=== PATIENT | female | born 1945 | race Caucasian/White ===

== ENCOUNTER → 2016-09-19 | Outpatient (CLI) | payer MEDICARE, OTHER ==
--- NOTE | 2016-09-19 16:34 | WOMENS IMAGING REPORT ---
EXAM DESCRIPTION: BILAT SCREENING MAMMO W/CAD COMPLETED DATE/TIME: 09/19/2016 11:47 am REASON FOR STUDY: Z12.31, ROUTINE SCREENING MAMMO Z12.31 ENCNTR SCREEN MAMMOGRAM FOR MALIGNANT NEOP LASM OF KAREEM COMPARISON: 2010 to 2015 TECHNIQUE: Standard craniocaudal and mediolateral oblique views of each breast recorded using [employer] acquisition. LIMITATIONS: None. FINDINGS: No masses, calcifications or architectural distortion. No areas of suspicion. Read with the assistance of CAD. .[facility] - R2 Cenova Version 1.3 .[facility] - R2 Cenova Version 1.3 .[facility] - R2 Cenova Version 2.4 .[facility] - R2 Cenova Version 2.4 .[facility] - R2 Business [employer]ing Relationship Manager Version 9.2 IMPRESSION: NORMAL MAMMOGRAM. BIRADS 1. BREAST DENSITY: b. There are scattered areas of fibroglandular density. BIRAD: 1 NEGATIVE RECOMMENDATION: ROUTINE SCREENING COMMENT: The patient has been notified of the results by letter per SA requirements. Additional no tification policies are in place for contacting patient with suspicious or incomplete findings. Quality ID #[id number]: The [employer] recommends an annual screening mammogram for women aged 40 years or over. This facility utilizes a reminder system to ensure that all patients receive reminder letters, and/or direct phone calls for appointments. This includes reminders for routine scr eening mammograms, diagnostic mammograms, or other Breast Imaging Interventions when appropriate. Th is patient will be placed in the appropriate reminder system. The [employer] (ACR) has developed recommendations for screening MRI of the breast s in certain patient populations, to be used in conjunction with mammography. Breast MRI surveillanc e may be appropriate for women with more than 20% lifetime risk of developing breast cancer as deter mined by genetic testing, significant family history of the disease, or history of mantle radiation f or Hodgkins Disease. ACR Practice Guidelines 2008. TECHNICAL DOCUMENTATION: FINDING NUMBER: (1) ASSESSMENT: (1) JOB ID: [id number] [employer]- All Rights Reserved
== END ==
LOC: RAD 11:24
PROVIDERS: ATTEND Internal Medicine
DX: Z12.31 Encounter for screening mammogram for malignant neoplasm of breast (principal)
CPT/HCPCS: 77067; G0202

== ENCOUNTER 2016-10-24 13:45 | Inpatient (IN) | payer MEDICARE, OTHER ==
--- NOTE | 2016-10-24 13:51 | ER Document Report ---
ED Fall - General Stated Complaint: LEG INJURY Time Seen by Provider: 10/24/16 13:49 Mode of Arrival: Medic Information source: Patient TRAVEL OUTSIDE OF THE [place] IN LAST 30 DAYS: No - HPI Patient complains to provider of: Trip and fall Occurred: Just prior to arrival Where: Home, Outdoors Context: Tripped Associated symptoms: None Location of injury/pain: Upper extremity, Lower extremity Quality of pain: Achy Severity: Moderate Pain Level: 3 Notes: Patient is a 71-year-old female brought to the emergency room by EMS after trip and fall in her yard, she was unable to get up and is complaining of pain to the left knee, she also has wounds to her left forearm with a small piece of wood sticking out of 1 of the wounds, she denies a head injury or loss of consciousness, no numbness or tingling to her extremities - Related data Allergies/Adverse Reactions: No Known Drug Allergies Allergy (Verified 11/21/11 14:23) Past Medical History - General Information source: Patient - Social History Smoking Status: Never Smoker Family History: Reviewed & Not Pertinent - Past Medical History Cardiac Medical History: Reports: Hx Hypercholesterolemia - meds x 6 years, Hx Hypertension - meds x 6 years Denies: Hx Atrial Fibrillation, Hx Congestive Heart Failure, Hx Coronary Artery Disease, Hx Heart Attack, Hx Peripheral Vascular Disease, Hx Pulmonary Embolism, Hx Heart Murmur Pulmonary Medical History: Denies: Hx Asthma, Hx Bronchitis, Hx COPD, Hx Pneumonia, Hx Respiratory Failure, Hx Sleep Apnea, Hx Tuberculosis Neurological Medical History: Denies: Hx Cerebrovascular Accident, Hx Seizures Endocrine Medical History: Reports: Hx Hypothyroidism - meds x 8 years. Denies : Hx Hyperthyroidism Renal/ Medical History: Denies: Hx End Stage Renal Disease, Hx Kidney Stones, Hx Peritoneal Dialysis Malignancy Medical History: Denies: Hx Lung Cancer GI Medical History: Reports: Hx Gastroesophageal Reflux Disease - meds x 3 years. Denies: Hx Crohn's Disease, Hx Hepatitis, Hx Hiatal Hernia, Hx Irritable Bowel, Hx Liver Failure, Hx Ulcer Musculoskeltal Medical History: Reports Hx Arthritis, Denies Hx Fibromyalgia, Denies Hx Muscular Dystrophy Traumatic Medical History: Denies: Hx Fractures Infectious Medical History: Denies: Hx Hepatitis Past Surgical History: Reports: Hx Tonsillectomy. Denies: Hx Appendectomy, Hx Bowel Surgery, Hx Section, Hx Cholecystectomy, Hx Colostomy, Hx Coronary Artery Bypass Graft, Hx Gastric Bypass Surgery, Hx Herniorrhaphy, Hx Hysterectomy, Hx Mastectomy, Hx Open Heart Surgery, Hx Pacemaker, Hx Tubal Ligation - Immunizations Hx Diphtheria, Pertussis, Tetanus Vaccination: Yes Review of Systems - Review of Systems Constitutional: No symptoms reported EENT: No symptoms reported Cardiovascular: No symptoms reported Respiratory: No symptoms reported Gastrointestinal: No symptoms reported Genitourinary: No symptoms reported Female Genitourinary: No symptoms reported Musculoskeletal: See HPI Skin: See HPI Hematologic/Lymphatic: No symptoms reported Neurological/Psychological: No symptoms reported -: Yes All other systems reviewed and negative Physical Exam - Vital signs Vitals: Resp Pulse Ox 13 87 L 10/24/16 13:58 10/24/16 13:58 Interpretation: Normal - General General appearance: Appears well, Alert - HEENT Head: Normocephalic, Atraumatic Eyes: Normal Pupils: PERRL - Respiratory Respiratory status: No respiratory distress Chest status: Nontender Breath sounds: Normal Chest palpation: Normal - Cardiovascular Rhythm: Regular Heart sounds: Normal auscultation Murmur: No - Abdominal Inspection: Normal Distension: No distension Bowel sounds: Normal Tenderness: Nontender Organomegaly: No organomegaly - Back Back: Normal, Nontender - Extremities General upper extremity: Normal temperature General lower extremity: Normal temperature. No: Zachary's sign Forearm: Other - Small 2 mm puncture laceration to left lateral forearm with a small piece of foreign body consistent with wood chip protruding from wound, 2 cm irregular shaped laceration slightly more proximal with adipose tissue exposed, surrounding abrasions, 2+ radial pulses, distal sensation and motor is intact Knee: Deformity - Swelling with slight deformity to left proximal knee/distal femur, pain with range of motion testing, tender to palpate, distal sensation and motor is intact - Neurological Neuro grossly intact: Yes Cognition: Normal Orientation: AAOx4 Safia Coma Scale Eye Opening: Spontaneous [place] Coma Scale Verbal: Oriented Safia Coma Scale Motor: Obeys Commands [place] Coma Scale Total: 15 Speech: Normal Motor strength normal: LUE, RUE, LLE, RLE Sensory: Normal - Psychological Associated symptoms: Normal affect, Normal mood - Skin Skin Temperature: Warm Skin Moisture: Dry Skin Color: Normal Course - Re-evaluation Re-evalutation: 10/24/16 15:37 Patient was discussed with Dr. Solorzano, orthopedist international guest coordinator, who agrees to care for patient number fracture, however he request that the hospitalist service admit the patient as she is 71 with multiple medical comorbidities 10/24/16 16:39 Patient was discussed with Dr. Bedoya, who requested I call Dr. Salgado for patient admission, patient was discussed with Dr. Salgado, who agrees to admit the patient to the hospitalist service for further evaluation 10/24/16 16:48 - Vital Signs Vital signs: Temp Pulse Resp BP Pulse Ox 23 H 129/76 H 100 10/24/16 16:01 10/24/16 16:01 10/24/16 16:01 - Laboratory Result Diagrams: 10/24/16 15:00 10/24/16 15:15 Laboratory results interpreted by me: 10/24/16 10/24/16 15:00 15:15 WBC 11.5 H Absolute Neutrophils 8.3 H BUN 22 H Est GFR (Non-Af Amer) 51 L Glucose 138 H - Diagnostic Test Radiology reviewed: Image reviewed, Reports reviewed - EKG Interpretation by Me EKG shows normal: Sinus rhythm Rate: Normal Rhythm: NSR - Consults Dr Solorzano Time consulted: 15:37 Reason for consultation: 10/24/16 16:48 Distal femur fracture Consulted provider: will see as inpatient - Transfer of Care Care transferred to following provider: Dr Salgado Procedures - Laceration/Wound Repair Left Arm Time completed: 16:37 Wound length (cm): 2 Wound's Depth, Shape: Irregular Laceration pre-procedure: Sterile PPE donned, Sterile drapes applied, Shur- Clens applied Anesthetic type: 1% Lidocaine Volume Anesthetic (mLs): 5 Wound explored: Clean Irrigated w/ Saline (mLs): 300 Wound Debrided: Minimal Wound Repaired With: Sutures Suture Size/Type: 4:0, Nylon Number of Sutures: 3 Layer Closure?: No Post-procedure wound care: Sterile dressing applied Post-procedure NV exam normal: No Complications: No Adult Front & Back picture: 1 - 2 cm laceration Discharge - Discharge Clinical Impression: Femoral distal fracture Qualifiers: Encounter type: initial encounter Fracture type: closed Fracture morphology: other fracture Laterality: left Qualified Code(s): S72.492A - Other fracture of lower end of left femur, initial encounter for closed fracture Forearm laceration Qualifiers: Encounter type: initial encounter Laterality: left Qualified Code(s): S51.812A - Laceration without foreign body of left forearm, initial encounter Condition: Stable Disposition: ADMITTED INPATIENT Admitting Provider: Hospitalist Unit Admitted: Medical Floor
[2016-10-24] MEDS ORDERED: ONDANSETRON HCL INJ/PF 4 MG/2 ML SDV IV ONE (14:41)
[2016-10-24 15:28] LABS: ABSOLUTE BASOPHILS # (AUTO) 0.1 10^3/uL (0.0-0.2); ABSOLUTE EOSINOPHILS # (AUTO) 0.1 10^3/uL (0.0-0.6); ABSOLUTE LYMPHOCYTES (AUTO) 2.1 10^3/uL (0.5-4.7); ABSOLUTE MONOCYTES (AUTO) 0.9 10^3/uL (0.1-1.4); ABSOLUTE NEUT (AUTO) 8.3 10^3/uL (1.7-8.2); BASOPHILS % (AUTO) 0.5 % (0-2); EOSINOPHILS % (AUTO) 1.1 % (0-6); HEMATOCRIT 41.6 % (36.0-47.0); HEMOGLOBIN 13.8 g/dL (12.0-15.5); HGB HCT DIFFERENCE -0.2; LYMPHOCYTES % (AUTO) 18.2 % (13-45); MEAN CORPUSCULAR HEMOGLOBIN 32.4 pg (27.0-33.4); MEAN CORPUSCULAR HGB CONC 33.2 g/dL (32.0-36.0); MEAN CORPUSCULAR VOLUME 97 fl (80-97); MONOCYTES % (AUTO) 7.4 % (3-13); RED BLOOD COUNT 4.27 10^6/uL (3.72-5.28); RED CELL DISTRIBUTION WIDTH 13.4 % (11.5-14.0); SEGMENTED NEUTROPHILS % (AUTO) 72.8 % (42-78); WHITE BLOOD COUNT 11.5 10^3/uL (4.0-10.5)
[2016-10-24] MEDS ORDERED: METOCLOPRAMIDE HCL INJ/PF 10 MG/2 ML SDV IV ONE (15:37)
[2016-10-24] MEDS ORDERED: MORPHINE SULFATE 10 MG/ML INJ IV ONE (15:37)
[2016-10-24] MEDS ORDERED: NORMAL SALINE 1000 ML 1,000 ML IV PRN ×2 (15:37→16:24)
--- NOTE | 2016-10-24 15:37 | RADIOLOGY REPORT (SQ) ---
EXAM DESCRIPTION: CHEST SINGLE VIEW COMPLETED DATE/TIME: 10/24/2016 3:28 pm REASON FOR STUDY: fall COMPARISON: 12/08/2012 EXAM PARAMETERS: NUMBER OF VIEWS: One view. TECHNIQUE: Single frontal radiographic view of the chest acquired. RADIATION DOSE: NA LIMITATIONS: None. FINDINGS: LUNGS AND PLEURA: No opacities, masses or pneumothorax. No pleural effusion. MEDIASTINUM AND HILAR STRUCTURES: No masses. Contour normal. HEART AND VASCULAR STRUCTURES: Heart normal in size. Normal vasculature. BONES: No acute findings. HARDWARE: None in the chest. OTHER: No other significant finding. IMPRESSION: NO ACUTE RADIOGRAPHIC FINDING IN THE CHEST. TECHNICAL DOCUMENTATION: JOB ID: [id number]
--- NOTE | 2016-10-24 15:38 | RADIOLOGY REPORT (SQ) ---
EXAM DESCRIPTION: FOREARM LEFT COMPLETED DATE/TIME: 10/24/2016 3:28 pm REASON FOR STUDY: fall COMPARISON: None. NUMBER OF VIEWS: Two views. TECHNIQUE: Two radiographic images acquired of the left forearm, including elbow and wrist in at carlie st one projection. LIMITATIONS: None. FINDINGS: MINERALIZATION: Normal. BONES: No acute fracture. No worrisome bone lesions. SOFT TISSUES: No obvious swelling or foreign body. OTHER: No other significant finding. IMPRESSION: NEGATIVE STUDY OF THE LEFT FOREARM. NO RADIOGRAPHIC EVIDENCE OF ACUTE INJURY. TECHNICAL DOCUMENTATION: JOB ID: [id number] [employer]- All Rights Reserved
--- NOTE | 2016-10-24 15:38 | RADIOLOGY REPORT (SQ) ---
EXAM DESCRIPTION: FEMUR LEFT COMPLETED DATE/TIME: 10/24/2016 3:28 pm REASON FOR STUDY: fall COMPARISON: None. NUMBER OF VIEWS: Two views. TECHNIQUE: Two radiographic images acquired of the left femur to include hip and knee in at least on e projection. LIMITATIONS: None. FINDINGS: There is a comminuted fracture of the distal femoral shaft just superior to the femoral co mponent of the knee prosthesis. There is about 1 shaft width of posterior displacement. IMPRESSION: Fracture of the distal femur. TECHNICAL DOCUMENTATION: JOB ID: [id number] [employer]- All Rights Reserved
[2016-10-24] MEDS ORDERED: LIDOCAINE 1%/EPINEPHRINE INJ 20 ML VIAL INJ ONE (15:55)
[2016-10-24 16:20] LABS: ALANINE AMINOTRANSFERASE 27 U/L (9-52); ALBUMIN 3.9 g/dL (3.5-5.0); ALKALINE PHOSPHATASE 74 U/L (38-126); ANION GAP 8 (5-19); ASPARTATE AMINO TRANSFERASE 20 U/L (14-36); BILIRUBIN,DIRECT 0.3 mg/dL (0.0-0.4); BILIRUBIN,TOTAL 0.5 mg/dL (0.2-1.3); BLOOD UREA NITROGEN 22 mg/dL (7-20); CALCIUM 9.5 mg/dL (8.4-10.2); CARBON DIOXIDE 28 mmol/L (22-30); CHLORIDE 105 mmol/L (98-107); CREATININE RESULT 1.05 mg/dL (0.52-1.25); GLUCOSE 138 mg/dL (75-110); POTASSIUM 4.5 mmol/L (3.6-5.0); SODIUM 141.3 mmol/L (137-145); TOTAL PROTEIN 6.6 g/dL (6.3-8.2)
[2016-10-24] MEDS ORDERED: LIDOCAINE 1% INJ-PF (10 MG/ML) 30 ML SDV ONE (16:21)
[2016-10-24] MEDS ORDERED: ACETAMINOPHEN 325 MG TABLET PO PRN (16:24)
[2016-10-24] MEDS ORDERED: ALBUTEROL SULFATE 0.083% NEB 2.5 MG/3 ML AMPUL NEB PRN (16:24)
[2016-10-24] MEDS ORDERED: MAG HYDROX/AL HYDROX/SIMETH SUSP 30 ML UDCUP PO PRN (16:30)
[2016-10-24] MEDS ORDERED: ONDANSETRON HCL INJ/PF 4 MG/2 ML SDV IV PRN (16:30)
[2016-10-24] MEDS ORDERED: MAGNESIUM HYDROXIDE SUSP 30 ML UDCUP PO PRN (16:30)
--- NOTE | 2016-10-24 16:47 | PDOC H&P ---
History of Present Illness Admission Date/PCP: 10/24/16 16:02 SAGAR BRUNER MD Patient complains of: arm and leg pain History of Present Illness: MARIMAR ARNDT is a 71 year old female presents to the ED after mechanical ground level fall while walking in her yard, she thinks she just mis-stepped landing hard onto her left side in the bushes. she did not hear or feel a pop but did have intense, sharp, knife like pain in the knee preventing her from standing, constant and radiating into the hip, nothing alleviated until given pain meds in ED. She also has a part of her bushes impaled into her superficial soft tissue of her left ant forearm. her last tetanus was in the past 5 years. she was in her usual state of health prior to this. she denies LEÓN, dizziness, LOC, N/T, chest pain, palpitations, fevers/chills, cough with phlegm, melena, hematochezia. she is normally able to perform all ADLs, does her own cooking/cleaning, groceries and much of her own yard work. She's never had cardiac history beyond HTN and never had difficulty waking from anesthesia or adverse reaction to medicine other than postop nausea and emesis. eval in the ED shows distal left femur fracture just proximal to previous TKA hardware. we were asked to admit and consult ortho for repair. Past Medical History Cardiac Medical History: Reports: Hyperlipidema - meds x 6 years, Hypertension - meds x 6 years Denies: Atrial Fibrillation, Congestive Heart Failure, Coronary Artery Disease, Myocardial Infarction, Peripheral Vascular Disease, Pulmonary Embolism , Heart Murmur Pulmonary Medical History: Denies: Asthma, Bronchitis, Chronic Obstructive Pulmonary Disease (COPD), Pneumonia, Respiratory Failure, Sleep Apnea, Tuberculosis Neurological Medical History: Denies: Seizures Endocrine Medical History: Reports: Hypothyroidism - meds x 8 years Denies: Hyperthyroidism Renal/ Medical History: Denies: End Stage Renal Disease Malignancy Medical History: Denies: Lung Cancer GI Medical History: Reports: Gastroesophageal Reflux Disease - meds x 3 years Denies: Crohn's Disease, Hepatitis, Hiatal Hernia Musculoskeltal Medical History: Reports: Arthritis Denies: Fibromyalgia Hematology: Denies: Anemia, Sickle Cell Disease Past Surgical History Past Surgical History: Reports: Orthopedic Surgery - bilat TKA's, Tonsillectomy Denies: Amputation, Appendectomy, Section, Cholecystectomy, Colostomy, Coronary Artery Bypass Graft, Gastric Bypass Surgery, Herniorrhaphy, Hysterectomy, Mastectomy, Pacemaker, Tubal Ligation Social History Information Source: Patient Smoking Status: Never Smoker Frequency of Alcohol Use: None Hx Recreational Drug Use: No Hx Prescription Drug Abuse: No - Advance Directive Resuscitation Status: Full Code Family History Family History: Reviewed & Not Pertinent, DM Parental Family History Reviewed: Yes Children Family History Reviewed: Yes Sibling(s) Family History Reviewed.: Yes Medication/Allergy Home Medications: Aspirin [Aspirin 81 mg Chewable Tablet] 81 mg PO DAILY 11/21/11 Levothyroxine Sodium [Synthroid 112 Mcg Tablet] 112 mcg PO QAM 11/21/11 Omeprazole [Prilosec 20 mg Capsule] 20 mg PO QAM 11/21/11 Simvastatin [Zocor 40 mg Tablet] 60 mg PO QHS 11/21/11 Metoprolol Tartrate [Lopressor 50 mg Tablet] 50 mg PO BID 12/16/12 Telmisartan/Hydrochlorothiazid [Micardis HCT 80-25 mg Tablet] 1 each PO QAM Allergies/Adverse Reactions: No Known Drug Allergies Allergy (Verified 11/21/11 14:23) Review of Systems All systems: reviewed and no additional remarkable complaints except as stated - ROS: all systems reviewed, see above, remaining systems negative. Physical Exam Vital Signs: Temp Pulse Resp BP Pulse Ox 23 H 129/76 H 100 10/24/16 16:01 10/24/16 16:01 10/24/16 16:01 General appearance: PRESENT: mild distress, obese, well-developed, well- nourished Head exam: PRESENT: atraumatic, normocephalic Eye exam: PRESENT: EOMI, PERRLA. ABSENT: conjunctival injection, scleral icterus Mouth exam: PRESENT: moist, neck supple Neck exam: PRESENT: full ROM. ABSENT: lymphadenopathy, meningismus, tenderness Respiratory exam: PRESENT: clear to auscultation pranay. ABSENT: accessory muscle use Cardiovascular exam: PRESENT: RRR. ABSENT: systolic murmur Pulses: PRESENT: normal radial pulses, normal dorsalis pedis pul Vascular exam: PRESENT: normal capillary refill, other - superficial varicosities GI/Abdominal exam: PRESENT: normal bowel sounds, soft. ABSENT: tenderness Extremities exam: PRESENT: other - left anterior forearm has small wooden bit stuck into the skin and soft tissue with contusion and scrape that is oozing blood slowly; no erythema or heat or swelling. ABSENT: calf tenderness, pedal edema Musculoskeletal exam: PRESENT: tenderness - very tender above the left knee, no contusion or swelling or ecchymosis as yet. ABSENT: ambulatory, full ROM Neurological exam: PRESENT: alert, awake, oriented to person, oriented to place , oriented to time, oriented to situation Psychiatric exam: PRESENT: appropriate affect, normal mood Skin exam: PRESENT: dry, warm Results Impressions: Chest X-Ray 10/24/16 13:49 IMPRESSION: NO ACUTE RADIOGRAPHIC FINDING IN THE CHEST. Femur X-Ray 10/24/16 13:49 IMPRESSION: Fracture of the distal femur. Forearm X-Ray 10/24/16 13:49 IMPRESSION: NEGATIVE STUDY OF THE LEFT FOREARM. NO RADIOGRAPHIC EVIDENCE OF ACUTE INJURY. Assessment & Plan - Diagnosis (1) Femoral distal fracture Qualifiers: Encounter type: initial encounter Fracture type: closed Fracture morphology: other fracture Laterality: left Qualified Code(s): S72.492A - Other fracture of lower end of left femur, initial encounter for closed fracture Is this a current diagnosis for this admission?: YesPlan: consult ortho for surgical repair; traction and care per dr abrams; pain control (2) Forearm laceration Qualifiers: Encounter type: initial encounter Laterality: left Qualified Code(s ): S51.812A - Laceration without foreign body of left forearm, initial encounter Is this a current diagnosis for this admission?: YesPlan: ED MD is to clean and dress the wound; will start empiric ancef. she reports tetanus shot in last 5 yrs (3) HTN (hypertension) Qualifiers: Hypertension type: essential hypertension Qualified Code(s): I10 - Essential (primary) hypertension Is this a current diagnosis for this admission?: YesPlan: continue beta latisha but hold other meds and monitor her BPs carefully; will likely worsen with the pain (4) Hyperlipidemia Qualifiers: Hyperlipidemia type: unspecified Qualified Code(s): E78.5 - Hyperlipidemia, unspecified Is this a current diagnosis for this admission?: YesPlan: resume home regimen at discharge (5) Hypothyroid Qualifiers: Hypothyroidism type: unspecified Qualified Code(s): E03.9 - Hypothyroidism, unspecified Is this a current diagnosis for this admission?: YesPlan: resume synthroid (6) Osteoarthritis Qualifiers: Osteoarthritis location: unspecified site Osteoarthritis type: unspecified Qualified Code(s): M19.90 - Unspecified osteoarthritis, unspecified site Is this a current diagnosis for this admission?: Yes - Time Time Spent: 50 to 70 Minutes Medications reviewed and adjusted accordingly: Yes Anticipated discharge: Acute Rehab Within: within 72 hours - Inpatient Certification Based on my medical assessment, after consideration of the patient's comorbidities, presenting symptoms, or acuity I expect that the services needed warrant INPATIENT care.: Yes I certify that my determination is in accordance with my understanding of Medicare's requirements for reasonable and necessary INPATIENT services [42 CFR 412.3e].: Yes Medical Necessity: Significant Comorbidiites Make Outpatient Treatment Too Risky , Need for Surgery, Risk of Complication if Not Cared For in Hospital
[2016-10-24 17:12] LABS: PROTHROMBIN TIME 13.3 SEC (11.4-15.4)
[2016-10-24 17:13] LABS: PARTIAL THROMBOPLASTIN TIME 28.2 SEC (23.5-35.8)
--- NOTE | 2016-10-24 17:19 | EKG REPORT ---
SEVERITY:- NORMAL ECG - SINUS RHYTHM : Confirmed by: Yi Murcia MD 24-Oct-2016 17:17:33
[2016-10-24] MEDS ORDERED: MORPHINE SULFATE 10 MG/ML INJ IV PRN (17:39)
[2016-10-24] MEDS: DOCUSATE SODIUM 100 MG CAPSULE PO SCH (18:51)
[2016-10-24] MEDS: CEFAZOLIN 1 GM/D5W RTU 50 ML IV SCH ×2 (18:52→23:09)
[2016-10-24] MEDS: METOPROLOL TARTRATE 50 MG TABLET PO SCH (21:46)
[2016-10-24 22:47] LABS: PROTHROMBIN TIME 13.4 SEC (11.4-15.4)
[2016-10-24 22:55] LABS: ANION GAP 10 (5-19); BLOOD UREA NITROGEN 23 mg/dL (7-20); CALCIUM 9.1 mg/dL (8.4-10.2); CARBON DIOXIDE 28 mmol/L (22-30); CHLORIDE 102 mmol/L (98-107); CREATININE RESULT 0.92 mg/dL (0.52-1.25); GLUCOSE 161 mg/dL (75-110); POTASSIUM 4.6 mmol/L (3.6-5.0); SODIUM 140.4 mmol/L (137-145)
[2016-10-24 23:22] LABS: ABSOLUTE LYMPHOCYTES (AUTO) 1.3 10^3/uL (0.5-4.7); ABSOLUTE MONOCYTES (AUTO) 0.8 10^3/uL (0.1-1.4); ABSOLUTE NEUT (AUTO) 7.5 10^3/uL (1.7-8.2); BASOPHILS % (AUTO) 0.5 % (0-2); EOSINOPHILS % (AUTO) 0.1 % (0-6); HEMATOCRIT 37.2 % (36.0-47.0); HEMOGLOBIN 12.6 g/dL (12.0-15.5); HGB HCT DIFFERENCE 0.6; LYMPHOCYTES % (AUTO) 13.3 % (13-45); MEAN CORPUSCULAR HEMOGLOBIN 32.5 pg (27.0-33.4); MEAN CORPUSCULAR VOLUME 96 fl (80-97); MONOCYTES % (AUTO) 7.9 % (3-13); RED BLOOD COUNT 3.88 10^6/uL (3.72-5.28); RED CELL DISTRIBUTION WIDTH 13.3 % (11.5-14.0); SEGMENTED NEUTROPHILS % (AUTO) 78.2 % (42-78); WHITE BLOOD COUNT 9.6 10^3/uL (4.0-10.5)
[2016-10-25] MEDS: CEFAZOLIN 1 GM/D5W RTU 50 ML IV SCH (05:15)
[2016-10-25] MEDS: OXYCODONE-ACETAMINOPHEN 5-325 MG TABLET PO PRN ×2 (05:15→17:24)
[2016-10-25 05:21] LABS: ABSOLUTE BASOPHILS # (AUTO) 0.1 10^3/uL (0.0-0.2); ABSOLUTE MONOCYTES (AUTO) 0.9 10^3/uL (0.1-1.4); ABSOLUTE NEUT (AUTO) 4.9 10^3/uL (1.7-8.2); BASOPHILS % (AUTO) 0.6 % (0-2); EOSINOPHILS % (AUTO) 0.5 % (0-6); HEMATOCRIT 34.9 % (36.0-47.0); HEMOGLOBIN 11.8 g/dL (12.0-15.5); HGB HCT DIFFERENCE 0.5; LYMPHOCYTES % (AUTO) 25.5 % (13-45); MEAN CORPUSCULAR HEMOGLOBIN 32.3 pg (27.0-33.4); MEAN CORPUSCULAR HGB CONC 33.9 g/dL (32.0-36.0); MEAN CORPUSCULAR VOLUME 96 fl (80-97); MONOCYTES % (AUTO) 11.9 % (3-13); RED BLOOD COUNT 3.66 10^6/uL (3.72-5.28); RED CELL DISTRIBUTION WIDTH 13.5 % (11.5-14.0); SEGMENTED NEUTROPHILS % (AUTO) 61.5 % (42-78)
--- NOTE | 2016-10-25 07:12 | PDOC CONSULTATION ---
Consultation Consult Date: 10/25/16 Consult reason:: Left lower extremity fracture History of Present Illness Admission Date/PCP: 10/24/16 16:24 SAGAR BRUNER MD History of Present Illness: The patient is a 71-year-old white female known to me from a prior right knee arthroplasty 4-5 years ago who presents status post a fall in the yard with subsequent left lower extremity pain and inability to weight-bear. Medical history is notable for a left knee arthroplasty in the distant past. Past Medical History Cardiac Medical History: Reports: Hyperlipidema - meds x 6 years, Hypertension - meds x 6 years Denies: Atrial Fibrillation, Congestive Heart Failure, Coronary Artery Disease, Myocardial Infarction, Peripheral Vascular Disease, Pulmonary Embolism , Heart Murmur Pulmonary Medical History: Denies: Asthma, Bronchitis, Chronic Obstructive Pulmonary Disease (COPD), Pneumonia, Respiratory Failure, Sleep Apnea, Tuberculosis Neurological Medical History: Denies: Seizures Endocrine Medical History: Reports: Hypothyroidism - meds x 8 years Denies: Hyperthyroidism Renal/ Medical History: Denies: End Stage Renal Disease Malignancy Medical History: Denies: Lung Cancer GI Medical History: Reports: Gastroesophageal Reflux Disease - meds x 3 years Denies: Crohn's Disease, Hepatitis, Hiatal Hernia Musculoskeltal Medical History: Reports: Arthritis Denies: Fibromyalgia Hematology: Denies: Anemia, Sickle Cell Disease Past Surgical History Past Surgical History: Reports: Orthopedic Surgery - bilat TKA's, Tonsillectomy Denies: Amputation, Appendectomy, Section, Cholecystectomy, Colostomy, Coronary Artery Bypass Graft, Gastric Bypass Surgery, Herniorrhaphy, Hysterectomy, Mastectomy, Pacemaker, Tubal Ligation Social History Smoking Status: Never Smoker Cigarettes Packs Per Day: 0 Cigars Per Day: 0 Pipes Per Day: 0 Number of Years Smokin Last Time Smoked: 10/23/16 Frequency of Alcohol Use: Rare Hx Recreational Drug Use: No Hx Prescription Drug Abuse: No - Advance Directive Resuscitation Status: Full Code Family History Family History: Reviewed & Not Pertinent Parental Family History Reviewed: No Children Family History Reviewed: No Sibling(s) Family History Reviewed.: No Medication/Allergy Home Medications: Aspirin [Aspirin 81 mg Chewable Tablet] 81 mg PO DAILY 11/21/11 Levothyroxine Sodium [Synthroid 112 Mcg Tablet] 112 mcg PO QAM 11/21/11 Omeprazole [Prilosec 20 mg Capsule] 20 mg PO QAM 11/21/11 Simvastatin [Zocor 40 mg Tablet] 60 mg PO QHS 11/21/11 Metoprolol Tartrate [Lopressor 50 mg Tablet] 50 mg PO BID 12/16/12 Telmisartan/Hydrochlorothiazid [Micardis HCT 80-25 mg Tablet] 1 each PO QAM Allergies/Adverse Reactions: No Known Drug Allergies Allergy (Verified 11/21/11 14:23) Review of Systems All systems: as per H Physical Exam Vital Signs: Temp Pulse Resp BP Pulse Ox 36.8 C 65 16 100/55 L 95 10/25/16 03:25 10/25/16 03:25 10/25/16 03:25 10/25/16 03:25 10/25/16 03:25 Intake & Output 10/24/16 10/25/16 10/26/16 06:59 06:59 06:59 Intake Total 1307 Output Total 600 Balance 707 Weight 121 kg General appearance: PRESENT: mild distress, obese Head exam: PRESENT: normocephalic Eye exam: PRESENT: EOMI Respiratory exam: PRESENT: unlabored Cardiovascular exam: PRESENT: RRR Pulses: PRESENT: +1 pedal pulses bilateral Vascular exam: PRESENT: normal capillary refill GI/Abdominal exam: PRESENT: soft Rectal exam: PRESENT: deferred Extremities exam: PRESENT: other - Lower extremity is externally rotated. Tender to palpation. Passive range of motion is not assessed. Anterior skin incision from total knee arthroplasty is well healed. Distal neurovascular examination is intact. Neurological exam: PRESENT: alert, awake, oriented to person, oriented to place , oriented to time, oriented to situation. ABSENT: motor sensory deficit Psychiatric exam: PRESENT: appropriate affect, normal mood. ABSENT: homicidal ideation, suicidal ideation Skin exam: PRESENT: dry, intact, warm. ABSENT: cyanosis, rash Results Laboratory Results: 10/25/16 05:09 10/24/16 22:26 10/24/16 10/24/16 10/25/16 22:26 23:13 05:09 WBC 9.6 8.0 RBC 3.88 3.66 L Hgb 12.6 11.8 L Hct 37.2 34.9 L MCV 96 96 MCH 32.5 32.3 MCHC 34.0 33.9 RDW 13.3 13.5 Plt Count 161 141 L Seg Neutrophils % 78.2 H 61.5 Lymphocytes % 13.3 25.5 Monocytes % 7.9 11.9 Eosinophils % 0.1 0.5 Basophils % 0.5 0.6 Absolute Neutrophils 7.5 4.9 Absolute Lymphocytes 1.3 2.0 Absolute Monocytes 0.8 0.9 Absolute Eosinophils 0.0 0.0 Absolute Basophils 0.0 0.1 Sodium 140.4 Potassium 4.6 Chloride 102 Carbon Dioxide 28 Anion Gap 10 BUN 23 H Creatinine 0.92 Est GFR ( Amer) > 60 Est GFR (Non-Af Amer) > 60 Glucose 161 H Calcium 9.1 Impressions: Chest X-Ray 10/24/16 13:49 IMPRESSION: NO ACUTE RADIOGRAPHIC FINDING IN THE CHEST. Femur X-Ray 10/24/16 13:49 IMPRESSION: Fracture of the distal femur. Forearm X-Ray 10/24/16 13:49 IMPRESSION: NEGATIVE STUDY OF THE LEFT FOREARM. NO RADIOGRAPHIC EVIDENCE OF ACUTE INJURY. Status: Image reviewed by co - These demonstrate a distal femur fracture over a posterior stabilized Rush Sigma knee. Fracture is oblique and comminuted. Assessment & Plan - Diagnosis (1) Femoral distal fracture Qualifiers: Encounter type: initial encounter Fracture type: closed Fracture morphology: other fracture Laterality: left Qualified Code(s): S72.492A - Other fracture of lower end of left femur, initial encounter for closed fracture Is this a current diagnosis for this admission?: YesPlan: 71-year-old white female with a periprosthetic left distal femur fracture. Tender plan will be for surgical stabilization. First an attempted stabilization will be with a retrograde intramedullary nail. If this is unsuccessful backup plan would be for distal femoral resection and endoprosthetic reconstruction. - Time Time Spent: 50 to 70 Minutes Critical Time spent with patient: 15-24 minutes Anticipated discharge: SNF Within: Other - Plan Summary Plan Summary: Surgical intervention stabilization left lower extremity
[2016-10-25] MEDS: LANSOPRAZOLE 15 MG TAB.RAP.DR PO SCH (08:00)
[2016-10-25] MEDS: LEVOTHYROXINE SODIUM 0.112 MG TABLET PO SCH (08:00)
[2016-10-25] MEDS ORDERED: (PENDING PHARMACY ID) (Omeprazole [Prilosec 20 Mg Capsule] 20 MG) PO SCH (08:00)
[2016-10-25] MEDS ORDERED: TRANEXAMIC ACID INJ/PF 1,000 MG/10 ML SDV IV PRN (08:13)
[2016-10-25] MEDS ORDERED: CEFAZOLIN SODIUM 2 GM in DEXTROSE 5%-WATER 100 ML IV PRN (08:14)
[2016-10-25] MEDS: DOCUSATE SODIUM 100 MG CAPSULE PO SCH ×2 (09:16→17:24)
[2016-10-25] MEDS: ENOXAPARIN SODIUM INJ 40 MG/0.4 ML DISP.SYRIN SUBCUT SCH (09:16)
[2016-10-25] MEDS: METOPROLOL TARTRATE 50 MG TABLET PO SCH ×2 (09:16→21:10)
[2016-10-25] MEDS: RINGERS SOLUTION,LACTATED 1,000 ML IV PRN ×2 (10:07→18:44)
[2016-10-25] MEDS ORDERED: MIDAZOLAM 2 MG/2 ML INJ ONE (10:19)
[2016-10-25] MEDS ORDERED: FENTANYL CITRATE INJ/PF 100 MCG/2 ML AMPUL ONE (10:19)
[2016-10-25] MEDS ORDERED: PROPOFOL INJ 200 MG/20 ML VIAL IV ONE (10:19)
[2016-10-25] MEDS ORDERED: IBUPROFEN INJ 800 MG/8 ML VIAL IV ONE (10:20)
[2016-10-25] MEDS ORDERED: TRANEXAMIC ACID INJ/PF 1,000 MG/10 ML SDV IV ONE ×3 (10:20→14:00)
--- NOTE | 2016-10-25 10:54 | PDOC PROGRESS REPORT ---
Subjective Progress Note for:: 10/25/16 Subjective:: reason for visit: f/u femur fx, HTN, pain control hospital summary: MARIMAR ARNDT is a 71 year old female presents to the ED after mechanical ground level fall while walking in her yard, she thinks she just mis-stepped landing hard onto her left side in the bushes. she did not hear or feel a pop but did have intense, sharp, knife like pain in the knee preventing her from standing, constant and radiating into the hip, nothing alleviated until given pain meds in ED. She also has a part of her bushes impaled into her superficial soft tissue of her left ant forearm. her last tetanus was in the past 5 years. she was in her usual state of health prior to this. she denies LEÓN, dizziness, LOC, N/T, chest pain, palpitations, fevers/ chills, cough with phlegm, melena, hematochezia. she is normally able to perform all ADLs, does her own cooking/cleaning, groceries and much of her own yard work. She's never had cardiac history beyond HTN and never had difficulty waking from anesthesia or adverse reaction to medicine other than postop nausea and emesis. eval in the ED shows distal left femur fracture just proximal to previous TKA hardware. we were asked to admit and consult ortho for repair. dr abrams taking to OR 10/25 for attempt at medullary nailing in hopes of avoiding complete reconstruction with new, larger prosthesis. she states her pain remains intense but tolerable on current regimen. sharp, stabbing, throbbing, constant pain in the knee that radiates into the hip, worse with movement, better with narcotics, no asct'd symptoms of n/t. ROS: all systems reviewed, see above, remaining systems negative Physical Exam Vital Signs: Temp Pulse Resp BP Pulse Ox 98.3 F 64 16 112/47 L 95 10/25/16 09:00 10/25/16 09:00 10/25/16 09:00 10/25/16 09:00 10/25/16 09:00 Intake & Output 10/24/16 10/25/16 10/26/16 06:59 06:59 06:59 Intake Total 1307 168 Output Total 600 Balance 707 168 Weight 121 kg General appearance: PRESENT: mild distress, obese, well-developed, well- nourished Head exam: PRESENT: atraumatic, normocephalic Eye exam: PRESENT: EOMI, PERRLA. ABSENT: conjunctival injection, scleral icterus Mouth exam: PRESENT: moist, neck supple Neck exam: PRESENT: full ROM. ABSENT: lymphadenopathy, meningismus, tenderness Respiratory exam: PRESENT: clear to auscultation pranay. ABSENT: accessory muscle use Cardiovascular exam: PRESENT: RRR. ABSENT: systolic murmur Pulses: PRESENT: normal radial pulses, normal dorsalis pedis pul Vascular exam: PRESENT: normal capillary refill, other - superficial varicosities GI/Abdominal exam: PRESENT: normal bowel sounds, soft. ABSENT: tenderness Extremities exam: PRESENT: other - left anterior forearm bandaged ABSENT: calf tenderness, pedal edema Musculoskeletal exam: PRESENT: tenderness - very tender above the left knee with developing joint effusion; no contusion or ecchymosis as yet. ABSENT: ambulatory, full ROM Neurological exam: PRESENT: alert, awake, oriented to person, oriented to place , oriented to time, oriented to situation Psychiatric exam: PRESENT: appropriate affect, normal mood Skin exam: PRESENT: dry, warm Results Laboratory Results: 10/25/16 05:09 10/24/16 22:26 10/24/16 10/24/16 10/25/16 22:26 23:13 05:09 WBC 9.6 8.0 RBC 3.88 3.66 L Hgb 12.6 11.8 L Hct 37.2 34.9 L MCV 96 96 MCH 32.5 32.3 MCHC 34.0 33.9 RDW 13.3 13.5 Plt Count 161 141 L Seg Neutrophils % 78.2 H 61.5 Lymphocytes % 13.3 25.5 Monocytes % 7.9 11.9 Eosinophils % 0.1 0.5 Basophils % 0.5 0.6 Absolute Neutrophils 7.5 4.9 Absolute Lymphocytes 1.3 2.0 Absolute Monocytes 0.8 0.9 Absolute Eosinophils 0.0 0.0 Absolute Basophils 0.0 0.1 Sodium 140.4 Potassium 4.6 Chloride 102 Carbon Dioxide 28 Anion Gap 10 BUN 23 H Creatinine 0.92 Est GFR ( Amer) > 60 Est GFR (Non-Af Amer) > 60 Glucose 161 H Calcium 9.1 Impressions: Chest X-Ray 10/24/16 13:49 IMPRESSION: NO ACUTE RADIOGRAPHIC FINDING IN THE CHEST. Femur X-Ray 10/24/16 13:49 IMPRESSION: Fracture of the distal femur. Forearm X-Ray 10/24/16 13:49 IMPRESSION: NEGATIVE STUDY OF THE LEFT FOREARM. NO RADIOGRAPHIC EVIDENCE OF ACUTE INJURY. Status: Imported from PACS Assessment & Plan - Diagnosis (1) Femoral distal fracture Qualifiers: Encounter type: initial encounter Fracture type: closed Fracture morphology: other fracture Laterality: left Qualified Code(s): S72.492A - Other fracture of lower end of left femur, initial encounter for closed fracture Is this a current diagnosis for this admission?: Yes (2) Forearm laceration Qualifiers: Encounter type: initial encounter Laterality: left Qualified Code(s ): S51.812A - Laceration without foreign body of left forearm, initial encounter Is this a current diagnosis for this admission?: Yes (3) HTN (hypertension) Qualifiers: Hypertension type: essential hypertension Qualified Code(s): I10 - Essential (primary) hypertension Is this a current diagnosis for this admission?: Yes (4) Hyperlipidemia Qualifiers: Hyperlipidemia type: unspecified Qualified Code(s): E78.5 - Hyperlipidemia, unspecified Is this a current diagnosis for this admission?: Yes (5) Hypothyroid Qualifiers: Hypothyroidism type: unspecified Qualified Code(s): E03.9 - Hypothyroidism, unspecified Is this a current diagnosis for this admission?: Yes (6) Osteoarthritis Qualifiers: Osteoarthritis location: unspecified site Osteoarthritis type: unspecified Qualified Code(s): M19.90 - Unspecified osteoarthritis, unspecified site Is this a current diagnosis for this admission?: Yes - Time Time Spent with patient: 15-24 minutes Anticipated discharge: Acute Rehab
[2016-10-25] MEDS ORDERED: DIPHENHYDRAMINE HCL 50 MG/ML VIAL IV PRN (11:52)
[2016-10-25] MEDS ORDERED: MORPHINE SULFATE 10 MG/ML INJ IV PRN (11:52)
[2016-10-25] MEDS ORDERED: FENTANYL CITRATE INJ/PF 100 MCG/2 ML AMPUL IV PRN ×3 (11:52)
[2016-10-25] MEDS ORDERED: PROMETHAZINE HCL INJ 25 MG/1 ML VIAL IV PRN (11:52)
[2016-10-25] MEDS ORDERED: MEPERIDINE HCL/PF INJ 25 MG/1 ML DISP.SYRIN IV PRN (11:52)
--- NOTE | 2016-10-25 12:14 | EKG REPORT ---
SEVERITY:- BORDERLINE ECG - SINUS RHYTHM BORDERLINE T ABNORMALITIES, ANTERIOR LEADS : Confirmed by: Yi Murcia MD 25-Oct-2016 12:13:45
--- NOTE | 2016-10-25 12:56 | Operative Report ---
Operative Report DATE OF SURGERY: 10/25/16 PREOPERATIVE DIAGNOSIS: Left periprosthetic distal femur fracture OPERATION: Open reduction internal fixation left distal femur SURGEON: PILY MORAES ANESTHESIA: Spinal ESTIMATED BLOOD LOSS: 100 PROCEDURE: Patient supine on the operating table left lower extremities prepped and draped in a sterile fashion. A sterile tourniquet was utilized. The limb was elevated. Tourniquet inflated 280 torr. In line with the previous surgical approach for her total knee arthroplasty median parapatellar arthrotomy is performed. Upon entering the joint the distal femoral component is easily identified. The cement plug in the distal femur is removed with an osteotome. The ostium was also used to break up the underlying cement mantle. Subsequently the femur. Using a series of flexible reamers until 11 mm millimeters reamer is passed. Subsequently a Superfocus 320 x 11 mm retrograde nail is advanced over a guide sole across the fracture site. Attempt is made to reduce the extension deformity at the fracture site. Subsequently the distal aspect is secured with 2 oblique screws in the second and third location as well as a transverse both in the fourth location. Approximately secured with a single anterior posterior screw through the proximal femoral metadiaphysis. This point the tourniquet was deflated. With normal saline. Hemostasis obtained with electrocautery. The fracture site is then exposed from underneath and the defect in the metadiaphysis was packed with Vitoss bone graft substitute. The wound was then closed in layers interrupted Vicryl followed by jennifer. A sterile dressing was applied and the patient's return to the PACU in satisfactory condition.
--- NOTE | 2016-10-25 13:48 | RADIOLOGY REPORT (SQ) ---
EXAM DESCRIPTION: NO CHG FLUORO; FEMUR LEFT COMPLETED DATE/TIME: 10/25/2016 1:24 pm REASON FOR STUDY: RETROGRADE IM NAIL INSERTION COMPARISON: 10/24/2016. FLUOROSCOPY TIME: 1.0 minute. 4 images saved to PACS. TECHNIQUE: Intra-operative images acquired during surgical procedure to evaluate progress. NUMBER OF IMAGES: 4 images. LIMITATIONS: None. FINDINGS: Surgical fixation of the fracture of the femur with placement of hardware. IMPRESSION: IMAGE(S) OBTAINED DURING PROCEDURE. COMMENT: Quality ID 145: Final reports for procedures using fluoroscopy that document radiation exp osure indices, or exposure time and number of fluorographic images (if radiation exposure indices are not available) Please consult full operative report of the attending physician for description of the procedure. TECHNICAL DOCUMENTATION: JOB ID: [id number] [employer]- All Rights Reserved
--- NOTE | 2016-10-25 13:48 | RADIOLOGY REPORT (SQ) ---
EXAM DESCRIPTION: NO CHG FLUORO; FEMUR LEFT COMPLETED DATE/TIME: 10/25/2016 1:24 pm REASON FOR STUDY: RETROGRADE IM NAIL INSERTION COMPARISON: 10/24/2016. FLUOROSCOPY TIME: 1.0 minute. 4 images saved to PACS. TECHNIQUE: Intra-operative images acquired during surgical procedure to evaluate progress. NUMBER OF IMAGES: 4 images. LIMITATIONS: None. FINDINGS: Surgical fixation of the fracture of the femur with placement of hardware. IMPRESSION: IMAGE(S) OBTAINED DURING PROCEDURE. COMMENT: Quality ID 145: Final reports for procedures using fluoroscopy that document radiation exp osure indices, or exposure time and number of fluorographic images (if radiation exposure indices are not available) Please consult full operative report of the attending physician for description of the procedure. TECHNICAL DOCUMENTATION: JOB ID: [id number] [employer]- All Rights Reserved
[2016-10-25] MEDS: CEFAZOLIN 1 GM/D5W RTU 1 GM/50 ML RTUPB IV SCH (21:10)
[2016-10-26] MEDS: OXYCODONE-ACETAMINOPHEN 5-325 MG TABLET PO PRN ×3 (02:46→14:18)
[2016-10-26 05:16] LABS: ABSOLUTE EOSINOPHILS # (AUTO) 0.1 10^3/uL (0.0-0.6); ABSOLUTE LYMPHOCYTES (AUTO) 1.2 10^3/uL (0.5-4.7); ABSOLUTE NEUT (AUTO) 5.7 10^3/uL (1.7-8.2); BASOPHILS % (AUTO) 0.6 % (0-2); EOSINOPHILS % (AUTO) 1.8 % (0-6); HEMATOCRIT 31.5 % (36.0-47.0); HEMOGLOBIN 10.6 g/dL (12.0-15.5); HGB HCT DIFFERENCE 0.3; MEAN CORPUSCULAR HEMOGLOBIN 32.1 pg (27.0-33.4); MEAN CORPUSCULAR HGB CONC 33.6 g/dL (32.0-36.0); MEAN CORPUSCULAR VOLUME 96 fl (80-97); MONOCYTES % (AUTO) 12.6 % (3-13); RED CELL DISTRIBUTION WIDTH 13.5 % (11.5-14.0); WHITE BLOOD COUNT 8.1 10^3/uL (4.0-10.5)
[2016-10-26 05:32] LABS: ANION GAP 8 (5-19); BLOOD UREA NITROGEN 21 mg/dL (7-20); CALCIUM 8.4 mg/dL (8.4-10.2); CARBON DIOXIDE 27 mmol/L (22-30); CHLORIDE 103 mmol/L (98-107); CREATININE RESULT 0.94 mg/dL (0.52-1.25); GLUCOSE 124 mg/dL (75-110); POTASSIUM 4.4 mmol/L (3.6-5.0); SODIUM 137.5 mmol/L (137-145)
[2016-10-26] MEDS: CEFAZOLIN 1 GM/D5W RTU 1 GM/50 ML RTUPB IV SCH (05:48)
--- NOTE | 2016-10-26 06:54 | PDOC PROGRESS REPORT ---
Subjective Progress Note for:: 10/26/16 Subjective:: Complains of inability to move her leg Physical Exam Vital Signs: Temp Pulse Resp BP Pulse Ox 36.8 C 91 17 124/54 L 95 10/25/16 23:44 10/25/16 23:44 10/25/16 23:44 10/25/16 23:44 10/25/16 23:44 Intake & Output 10/24/16 10/25/16 10/26/16 06:59 06:59 06:59 Intake Total 1307 2823 Output Total 600 3125 Balance 707 -302 Weight 121 kg 121.2 kg General appearance: PRESENT: mild distress, obese Head exam: PRESENT: normocephalic Eye exam: PRESENT: EOMI Respiratory exam: PRESENT: unlabored Cardiovascular exam: PRESENT: RRR Pulses: PRESENT: +1 pedal pulses bilateral Vascular exam: PRESENT: normal capillary refill GI/Abdominal exam: PRESENT: soft Rectal exam: PRESENT: deferred Extremities exam: PRESENT: other - Left lower extremity dressing with some areas of drainage that have not completely saturated through. Distal neurovascular examination is intact. Neurological exam: PRESENT: alert, awake, oriented to person, oriented to place , oriented to time, oriented to situation. ABSENT: motor sensory deficit Psychiatric exam: PRESENT: appropriate affect, normal mood. ABSENT: homicidal ideation, suicidal ideation Skin exam: PRESENT: dry, intact, warm. ABSENT: cyanosis, rash Results Laboratory Results: 10/26/16 04:36 10/26/16 04:36 10/26/16 10/26/16 04:36 04:36 WBC 8.1 RBC 3.30 L Hgb 10.6 L Hct 31.5 L MCV 96 MCH 32.1 MCHC 33.6 RDW 13.5 Plt Count 119 L Seg Neutrophils % 70.0 Lymphocytes % 15.0 Monocytes % 12.6 Eosinophils % 1.8 Basophils % 0.6 Absolute Neutrophils 5.7 Absolute Lymphocytes 1.2 Absolute Monocytes 1.0 Absolute Eosinophils 0.1 Absolute Basophils 0.0 Sodium 137.5 Potassium 4.4 Chloride 103 Carbon Dioxide 27 Anion Gap 8 BUN 21 H Creatinine 0.94 Est GFR ( Amer) > 60 Est GFR (Non-Af Amer) 58 L Glucose 124 H Calcium 8.4 Impressions: Chest X-Ray 10/24/16 13:49 IMPRESSION: NO ACUTE RADIOGRAPHIC FINDING IN THE CHEST. Forearm X-Ray 10/24/16 13:49 IMPRESSION: NEGATIVE STUDY OF THE LEFT FOREARM. NO RADIOGRAPHIC EVIDENCE OF ACUTE INJURY. Femur X-Ray 10/25/16 00:00 IMPRESSION: IMAGE(S) OBTAINED DURING PROCEDURE. Fluoroscopy 10/25/16 00:00 IMPRESSION: IMAGE(S) OBTAINED DURING PROCEDURE. Status: Imported from PACS Assessment & Plan - Diagnosis (1) Femoral distal fracture Qualifiers: Encounter type: initial encounter Fracture type: closed Fracture morphology: other fracture Laterality: left Qualified Code(s): S72.492A - Other fracture of lower end of left femur, initial encounter for closed fracture Is this a current diagnosis for this admission?: YesPlan: 71-year-old white female status post open reduction internal fixation of the left distal femur fracture, postop day 1. Patient to be seen by physical therapy for touchdown weightbearing ambulation on the left lower extremity. Patient is to be seen by social work [facility] facility [facility] since she lives alone. - Time Time Spent with patient: 15-24 minutes Anticipated discharge: SNF Within: when bed available
[2016-10-26] MEDS: LEVOTHYROXINE SODIUM 0.112 MG TABLET PO SCH (07:53)
[2016-10-26] MEDS: LANSOPRAZOLE 15 MG TAB.RAP.DR PO SCH (07:53)
[2016-10-26] MEDS: METOPROLOL TARTRATE 50 MG TABLET PO SCH ×2 (10:00→21:23)
[2016-10-26] MEDS: ENOXAPARIN SODIUM INJ 40 MG/0.4 ML DISP.SYRIN SUBCUT SCH (10:00)
[2016-10-26] MEDS: DOCUSATE SODIUM 100 MG CAPSULE PO SCH ×2 (10:01→17:06)
--- NOTE | 2016-10-26 14:33 | PDOC PROGRESS REPORT ---
Subjective Progress Note for:: 10/26/16 Subjective:: reason for visit: f/u femur fx, HTN, pain control hospital summary: MARIMAR ARNDT is a 71 year old female presents to the ED after mechanical ground level fall while walking in her yard, she thinks she just mis-stepped landing hard onto her left side in the bushes. she did not hear or feel a pop but did have intense, sharp, knife like pain in the knee preventing her from standing, constant and radiating into the hip, nothing alleviated until given pain meds in ED. She also has a part of her bushes impaled into her superficial soft tissue of her left ant forearm. her last tetanus was in the past 5 years. she was in her usual state of health prior to this. she denies LEÓN, dizziness, LOC, N/T, chest pain, palpitations, fevers/ chills, cough with phlegm, melena, hematochezia. she is normally able to perform all ADLs, does her own cooking/cleaning, groceries and much of her own yard work. She's never had cardiac history beyond HTN and never had difficulty waking from anesthesia or adverse reaction to medicine other than postop nausea and emesis. eval in the ED shows distal left femur fracture just proximal to previous TKA hardware. we were asked to admit and consult ortho for repair. dr abrams taking to OR 10/25 for attempt at medullary nailing in hopes of avoiding complete reconstruction with new, larger prosthesis. she states her pain improved after surgery but tolerable on current regimen. sharp, stabbing, throbbing, constant pain in the knee that radiates into the hip , worse with movement, better with narcotics, no asct'd symptoms of n/t. ROS: all systems reviewed, see above, remaining systems negative Physical Exam Vital Signs: Temp Pulse Resp BP Pulse Ox 98.2 F 77 18 122/54 L 92 10/26/16 11:39 10/26/16 11:39 10/26/16 11:39 10/26/16 11:39 10/26/16 11:39 Intake & Output 10/25/16 10/26/16 10/27/16 06:59 06:59 06:59 Intake Total 1307 4023 220 Output Total 600 3125 Balance 707 408 220 Weight 121 kg 121.2 kg 121.2 kg General appearance: PRESENT: mild distress, obese, well-developed, well- nourished Head exam: PRESENT: atraumatic, normocephalic Eye exam: PRESENT: EOMI, PERRLA. ABSENT: conjunctival injection, scleral icterus Mouth exam: PRESENT: moist, neck supple Neck exam: PRESENT: full ROM. ABSENT: lymphadenopathy, meningismus, tenderness Respiratory exam: PRESENT: clear to auscultation pranay. ABSENT: accessory muscle use Cardiovascular exam: PRESENT: RRR. ABSENT: systolic murmur Pulses: PRESENT: normal radial pulses, normal dorsalis pedis pul Vascular exam: PRESENT: normal capillary refill, other - superficial varicosities GI/Abdominal exam: PRESENT: normal bowel sounds, soft. ABSENT: tenderness Extremities exam: PRESENT: other - left anterior forearm bandaged ABSENT: calf tenderness, pedal edema Musculoskeletal exam: PRESENT: tenderness - above the knee, heavily bandaged with some blood/serosanquinous fluid on the bandage ABSENT: ambulatory, full ROM Neurological exam: PRESENT: alert, awake, oriented to person, oriented to place , oriented to time, oriented to situation Psychiatric exam: PRESENT: appropriate affect, normal mood Skin exam: PRESENT: dry, warm Results Laboratory Results: 10/26/16 04:36 10/26/16 04:36 10/26/16 10/26/16 04:36 04:36 WBC 8.1 RBC 3.30 L Hgb 10.6 L Hct 31.5 L MCV 96 MCH 32.1 MCHC 33.6 RDW 13.5 Plt Count 119 L Seg Neutrophils % 70.0 Lymphocytes % 15.0 Monocytes % 12.6 Eosinophils % 1.8 Basophils % 0.6 Absolute Neutrophils 5.7 Absolute Lymphocytes 1.2 Absolute Monocytes 1.0 Absolute Eosinophils 0.1 Absolute Basophils 0.0 Sodium 137.5 Potassium 4.4 Chloride 103 Carbon Dioxide 27 Anion Gap 8 BUN 21 H Creatinine 0.94 Est GFR ( Amer) > 60 Est GFR (Non-Af Amer) 58 L Glucose 124 H Calcium 8.4 Impressions: Femur X-Ray 10/25/16 00:00 IMPRESSION: IMAGE(S) OBTAINED DURING PROCEDURE. Fluoroscopy 10/25/16 00:00 IMPRESSION: IMAGE(S) OBTAINED DURING PROCEDURE. Assessment & Plan - Diagnosis (1) Femoral distal fracture Qualifiers: Encounter type: initial encounter Fracture type: closed Fracture morphology: other fracture Laterality: left Qualified Code(s): S72.492A - Other fracture of lower end of left femur, initial encounter for closed fracture Is this a current diagnosis for this admission?: Yes (2) Forearm laceration Qualifiers: Encounter type: initial encounter Laterality: left Qualified Code(s ): S51.812A - Laceration without foreign body of left forearm, initial encounter Is this a current diagnosis for this admission?: Yes (3) HTN (hypertension) Qualifiers: Hypertension type: essential hypertension Qualified Code(s): I10 - Essential (primary) hypertension Is this a current diagnosis for this admission?: Yes (4) Hyperlipidemia Qualifiers: Hyperlipidemia type: unspecified Qualified Code(s): E78.5 - Hyperlipidemia, unspecified Is this a current diagnosis for this admission?: Yes (5) Hypothyroid Qualifiers: Hypothyroidism type: unspecified Qualified Code(s): E03.9 - Hypothyroidism, unspecified Is this a current diagnosis for this admission?: Yes (6) Osteoarthritis Qualifiers: Osteoarthritis location: unspecified site Osteoarthritis type: unspecified Qualified Code(s): M19.90 - Unspecified osteoarthritis, unspecified site Is this a current diagnosis for this admission?: Yes - Time Time Spent with patient: 25-34 minutes Anticipated discharge: Acute Rehab Within: within 48 hours
[2016-10-27] MEDS: OXYCODONE-ACETAMINOPHEN 5-325 MG TABLET PO PRN ×2 (08:30→21:30)
[2016-10-27] MEDS: LANSOPRAZOLE 15 MG TAB.RAP.DR PO SCH (08:31)
[2016-10-27] MEDS: LEVOTHYROXINE SODIUM 0.112 MG TABLET PO SCH (08:31)
[2016-10-27] MEDS ORDERED: BISACODYL 5 MG TABEC PO ONE (09:00)
[2016-10-27] MEDS: METOPROLOL TARTRATE 50 MG TABLET PO SCH ×2 (09:15→21:30)
[2016-10-27] MEDS: SENNOSIDES/DOCUSATE 8.6-50 MG 1 EACH TABLET PO SCH ×2 (09:15→17:38)
[2016-10-27] MEDS: ENOXAPARIN SODIUM INJ 40 MG/0.4 ML DISP.SYRIN SUBCUT SCH (09:16)
--- NOTE | 2016-10-27 11:48 | PDOC PROGRESS REPORT ---
Subjective Progress Note for:: 10/27/16 Subjective:: reason for visit: f/u femur fx, HTN, pain control hospital summary: MARIMAR ARNDT is a 71 year old female presents to the ED after mechanical ground level fall while walking in her yard, she thinks she just mis-stepped landing hard onto her left side in the bushes. she did not hear or feel a pop but did have intense, sharp, knife like pain in the knee preventing her from standing, constant and radiating into the hip, nothing alleviated until given pain meds in ED. She also has a part of her bushes impaled into her superficial soft tissue of her left ant forearm. her last tetanus was in the past 5 years. she was in her usual state of health prior to this. she denies LEÓN, dizziness, LOC, N/T, chest pain, palpitations, fevers/ chills, cough with phlegm, melena, hematochezia. she is normally able to perform all ADLs, does her own cooking/cleaning, groceries and much of her own yard work. She's never had cardiac history beyond HTN and never had difficulty waking from anesthesia or adverse reaction to medicine other than postop nausea and emesis. eval in the ED shows distal left femur fracture just proximal to previous TKA hardware. we were asked to admit and consult ortho for repair. dr abrams to OR 10/25 for attempt at medullary nailing in hopes of avoiding complete reconstruction with new, larger prosthesis. she states her pain improved after surgery but tolerable on current regimen. sharp, stabbing, throbbing, constant pain in the knee that radiates into the hip, worse with movement, better with narcotics, no asct'd symptoms of n/t. ROS: all systems reviewed, see above, remaining systems negative Physical Exam Vital Signs: Temp Pulse Resp BP Pulse Ox 98.6 F 86 20 142/53 H 94 10/27/16 07:36 10/27/16 07:36 10/27/16 07:36 10/27/16 07:36 10/27/16 07:36 Intake & Output 10/26/16 10/27/16 10/28/16 06:59 06:59 06:59 Intake Total 4022 1810 Output Total 5884 1725 Balance 898 85 Weight 121.2 kg 123.7 kg General appearance: PRESENT: mild distress, obese, well-developed, well- nourished Head exam: PRESENT: atraumatic, normocephalic Eye exam: PRESENT: EOMI, PERRLA. ABSENT: conjunctival injection, scleral icterus Mouth exam: PRESENT: moist, neck supple Neck exam: PRESENT: full ROM. ABSENT: lymphadenopathy, meningismus, tenderness Respiratory exam: PRESENT: clear to auscultation pranay. ABSENT: accessory muscle use Cardiovascular exam: PRESENT: RRR. ABSENT: systolic murmur Pulses: PRESENT: normal radial pulses, normal dorsalis pedis pul Vascular exam: PRESENT: normal capillary refill, other - superficial varicosities GI/Abdominal exam: PRESENT: normal bowel sounds, soft. ABSENT: tenderness Extremities exam: PRESENT: other - left anterior forearm bandaged ABSENT: calf tenderness, pedal edema Musculoskeletal exam: PRESENT: tenderness - above the knee, heavily bandaged with some blood/serosanquinous fluid on the bandage ABSENT: ambulatory, full ROM Neurological exam: PRESENT: alert, awake, oriented to person, oriented to place , oriented to time, oriented to situation Psychiatric exam: PRESENT: appropriate affect, normal mood Skin exam: PRESENT: dry, warm Results Laboratory Results: 10/26/16 04:36 10/26/16 04:36 Assessment & Plan - Diagnosis (1) Femoral distal fracture Qualifiers: Encounter type: initial encounter Fracture type: closed Fracture morphology: other fracture Laterality: left Qualified Code(s): S72.492A - Other fracture of lower end of left femur, initial encounter for closed fracture Is this a current diagnosis for this admission?: Yes (2) Forearm laceration Qualifiers: Encounter type: initial encounter Laterality: left Qualified Code(s ): S51.812A - Laceration without foreign body of left forearm, initial encounter Is this a current diagnosis for this admission?: Yes (3) HTN (hypertension) Qualifiers: Hypertension type: essential hypertension Qualified Code(s): I10 - Essential (primary) hypertension Is this a current diagnosis for this admission?: Yes (4) Hyperlipidemia Qualifiers: Hyperlipidemia type: unspecified Qualified Code(s): E78.5 - Hyperlipidemia, unspecified Is this a current diagnosis for this admission?: Yes (5) Hypothyroid Qualifiers: Hypothyroidism type: unspecified Qualified Code(s): E03.9 - Hypothyroidism, unspecified Is this a current diagnosis for this admission?: Yes (6) Osteoarthritis Qualifiers: Osteoarthritis location: unspecified site Osteoarthritis type: unspecified Qualified Code(s): M19.90 - Unspecified osteoarthritis, unspecified site Is this a current diagnosis for this admission?: Yes - Time Time Spent with patient: 15-24 minutes Anticipated discharge: Acute Rehab Within: within 24 hours
[2016-10-28] MEDS: OXYCODONE-ACETAMINOPHEN 5-325 MG TABLET PO PRN (03:39)
--- NOTE | 2016-10-28 06:26 | PDOC TRANSFER SUMMARY ---
General - Admit/Disc Date/PCP Admission Date/Primary Care Provider: 10/24/16 16:24 SAGAR BRUNER MD Discharge Date: 10/28/16 - Discharge Diagnosis (1) Femoral distal fracture Is this a current diagnosis for this admission?: Yes - Additional Information Resuscitation Status: Full Code Discharge Diet: As Tolerated, Regular Discharge Activity: Balance Activity w/Rest, Other - touch down weightbearing left lower extremity Home Medications: Aspirin [Aspirin 81 mg Chewable Tablet] 81 mg PO DAILY 11/21/11 Levothyroxine Sodium [Synthroid 0.112 mg Tablet] 112 mcg PO QAM 11/21/11 Omeprazole [Prilosec 20 mg Capsule] 20 mg PO QAM 11/21/11 Simvastatin [Zocor 40 mg Tablet] 60 mg PO QHS 11/21/11 Metoprolol Tartrate [Lopressor 50 mg Tablet] 50 mg PO BID 12/16/12 Telmisartan/Hydrochlorothiazid [Micardis HCT 80-25 mg Tablet] 1 each PO QAM History of Present Illness Admission Date/PCP: 10/24/16 16:24 SAGAR BRUNER MD History of Present Illness: Patient is a 71-year-old white female status post bilateral knee arthroplasty in the past now with a fall and inability to bear weight on the left side. Evaluation in the emergency room revealed a left periprosthetic femur fracture. The patient was admitted to the hospitalist and orthopedics consulted for fracture management. Hospital Course Hospital Course: Admitted through the emergency room and subsequently taken to the operating room for an open reduction internal fixation of the left distal femur fracture. She tolerates the procedure and postoperative rehabilitation without complication. Ability to ambulate has been limited by her weightbearing restriction which touchdown weightbearing on the left lower extremity. Dressing is changed on postop day 3. The wound is clean dry and intact. There is minimal pedal edema. Physical Exam Vital Signs: Temp Pulse Resp BP Pulse Ox 37.1 C 78 16 123/48 L 94 10/28/16 04:00 10/28/16 04:00 10/28/16 04:00 10/28/16 04:00 10/28/16 04:00 Intake & Output 10/26/16 10/27/16 10/28/16 06:59 06:59 06:59 Intake Total 4023 1810 440 Output Total 3125 1725 750 Balance 898 85 -310 Weight 121.2 kg 123.7 kg 123.4 kg General appearance: PRESENT: no acute distress, obese Head exam: PRESENT: normocephalic Eye exam: PRESENT: EOMI Respiratory exam: PRESENT: unlabored Cardiovascular exam: PRESENT: RRR Pulses: PRESENT: +1 pedal pulses bilateral Vascular exam: PRESENT: normal capillary refill GI/Abdominal exam: PRESENT: soft Rectal exam: PRESENT: deferred Musculoskeletal exam: PRESENT: other - Wound is clean dry and intact on postop day 3 without erythema drainage induration or tenderness. Neurological exam: PRESENT: alert, awake, oriented to person, oriented to place , oriented to time, oriented to situation. ABSENT: motor sensory deficit Psychiatric exam: PRESENT: appropriate affect, normal mood. ABSENT: homicidal ideation, suicidal ideation Skin exam: PRESENT: dry, intact, warm. ABSENT: cyanosis, rash Results Laboratory Results: 10/26/16 04:36 10/26/16 04:36 Impressions: Chest X-Ray 10/24/16 13:49 IMPRESSION: NO ACUTE RADIOGRAPHIC FINDING IN THE CHEST. Forearm X-Ray 10/24/16 13:49 IMPRESSION: NEGATIVE STUDY OF THE LEFT FOREARM. NO RADIOGRAPHIC EVIDENCE OF ACUTE INJURY. Femur X-Ray 10/25/16 00:00 IMPRESSION: IMAGE(S) OBTAINED DURING PROCEDURE. Fluoroscopy 10/25/16 00:00 IMPRESSION: IMAGE(S) OBTAINED DURING PROCEDURE. Status: Imported from PACS Transfer Plan - Disposition Transfer Plan: To be transferred to a group home facility with a left lower extremity touchdown weightbearing restriction for 6 weeks Plan Discharge Plan: Follow-up with Dr. Solorzano in the [facility] for surgery in 2 weeks for staple removal
[2016-10-28] MEDS: LEVOTHYROXINE SODIUM 0.112 MG TABLET PO SCH (10:58)
[2016-10-28] MEDS: METOPROLOL TARTRATE 50 MG TABLET PO SCH (10:59)
[2016-10-28] MEDS: LANSOPRAZOLE 15 MG TAB.RAP.DR PO SCH (10:59)
[2016-10-28] MEDS: SENNOSIDES/DOCUSATE 8.6-50 MG 1 EACH TABLET PO SCH (11:00)
[2016-10-28 11:16] VITALS: BP 126/48
--- NOTE | 2016-10-28 13:10 | PDOC DISCHARGE SUMMARY ---
General - Admit/Disc Date/PCP Admission Date/Primary Care Provider: 10/24/16 16:24 SAGAR BRUNER MD Discharge Date: 10/28/16 - Discharge Diagnosis (1) Femoral distal fracture Is this a current diagnosis for this admission?: YesSummary: s/p intramedullary nailing, per dr abrams; weight bearing and wound care per dr abrams. arrangements made for rehab placement and she is stable for transfer at this time. Rxs on chart for controlled substances (2) Forearm laceration Is this a current diagnosis for this admission?: YesSummary: continue topical wound care and dressing changes with dry dressing until healed. (3) HTN (hypertension) Is this a current diagnosis for this admission?: YesSummary: better controlled once her pain relieved. continue current regimen (4) Hyperlipidemia Is this a current diagnosis for this admission?: Yes (5) Hypothyroid Is this a current diagnosis for this admission?: Yes (6) Osteoarthritis Is this a current diagnosis for this admission?: Yes - Additional Information Resuscitation Status: Full Code Discharge Diet: As Tolerated, Regular Discharge Activity: Balance Activity w/Rest, Other - touch down weightbearing left lower extremity Home Medications: Aspirin [Aspirin 81 mg Chewable Tablet] 81 mg PO DAILY 11/21/11 Levothyroxine Sodium [Synthroid 0.112 mg Tablet] 112 mcg PO QAM 11/21/11 Omeprazole [Prilosec 20 mg Capsule] 20 mg PO QAM 11/21/11 Simvastatin [Zocor 40 mg Tablet] 60 mg PO QHS 11/21/11 Metoprolol Tartrate [Lopressor 50 mg Tablet] 50 mg PO BID 12/16/12 Telmisartan/Hydrochlorothiazid [Micardis HCT 80-25 mg Tablet] 1 each PO QAM Oxycodone HCl 5 mg PO Q6HP PRN #60 capsule 10/28/16 Rivaroxaban [Xarelto 10 mg Tablet] 10 mg PO DAILY #12 tablet 10/28/16 History of Present Illness Patient complains of: leg pain History of Present Illness: MARIMAR ARNDT is a 71 year old female presents to the ED after mechanical ground level fall while walking in her yard, she thinks she just mis-stepped landing hard onto her left side in the bushes. Hospital Course Hospital Course: she did not hear or feel a pop but did have intense, sharp, knife like pain in the knee preventing her from standing, constant and radiating into the hip, nothing alleviated until given pain meds in ED. She also has a part of her bushes impaled into her superficial soft tissue of her left ant forearm. her last tetanus was in the past 5 years. she was in her usual state of health prior to this. she denies LEÓN, dizziness, LOC, N/T, chest pain, palpitations, fevers/chills, cough with phlegm, melena, hematochezia. she is normally able to perform all ADLs, does her own cooking/cleaning, groceries and much of her own yard work. She's never had cardiac history beyond HTN and never had difficulty waking from anesthesia or adverse reaction to medicine other than postop nausea and emesis. eval in the ED shows distal left femur fracture just proximal to previous TKA hardware. we were asked to admit and consult ortho for repair. dr abrams to OR 10/25 for attempt at medullary nailing in hopes of avoiding complete reconstruction with new, larger prosthesis. she states her pain improved after surgery but tolerable on current regimen. sharp, stabbing, throbbing, constant pain in the knee that radiates into the hip, worse with movement, better with narcotics, no asct'd symptoms of n/t. orthopedic surgery consulted and taken to OR by aliza with successful repair, tolerating the procedure without complication. she is up working with PT but needs rehab placement until such time as she can return to independent living. arrangements made for transfer to [facility] for ongoing rehab and she is stable for d/c at this time. wound care and weight bearing instructions per dr abrams , see his notes for details. Physical Exam Vital Signs: Temp Pulse Resp BP Pulse Ox 98.9 F 81 19 126/48 H 93 10/28/16 08:03 10/28/16 08:03 10/28/16 08:03 10/28/16 08:03 10/28/16 08:03 Intake & Output 10/27/16 10/28/16 10/29/16 06:59 06:59 06:59 Intake Total 1810 440 Output Total 1725 750 Balance 85 -310 Weight 123.7 kg 123.4 kg General appearance: PRESENT: no acute distress, well-developed, well-nourished Eye exam: PRESENT: EOMI Mouth exam: PRESENT: moist Neck exam: PRESENT: full ROM Respiratory exam: PRESENT: clear to auscultation pranay. ABSENT: accessory muscle use Pulses: PRESENT: normal radial pulses, normal dorsalis pedis pul Neurological exam: PRESENT: alert, awake, oriented to person, oriented to place , oriented to time, oriented to situation Skin exam: PRESENT: warm, other - surgical jennifer in place, wound is well approximated with small amount of edema, not hot or erythematous Results Laboratory Results: 10/26/16 04:36 10/26/16 04:36 Impressions: Chest X-Ray 10/24/16 13:49 IMPRESSION: NO ACUTE RADIOGRAPHIC FINDING IN THE CHEST. Forearm X-Ray 10/24/16 13:49 IMPRESSION: NEGATIVE STUDY OF THE LEFT FOREARM. NO RADIOGRAPHIC EVIDENCE OF ACUTE INJURY. Femur X-Ray 10/25/16 00:00 IMPRESSION: IMAGE(S) OBTAINED DURING PROCEDURE. Fluoroscopy 10/25/16 00:00 IMPRESSION: IMAGE(S) OBTAINED DURING PROCEDURE. Qualifiers PATEINT BEING DISCHARGED WITH ANY OF THE FOLLOWING DIAGNOSIS?: No VTE patient discharged on overlapping Therapy?: Yes Plan Discharge Plan: transfer to [facility] for ongoing rehab Time Spent: Greater than 30 Minutes
== END 2016-10-28 12:51 | DRG 481 ==
LOC: ER 13:45 → EH 16:02 → UNDOADMIN 16:02 → EH 16:24 → 4S 17:21 → 4N 10-26 17:35
PROC: 0QSC04Z Reposition Left Lower Femur with Internal Fixation Device, Open Approach (ICD-10-PCS; principal; 2016-10-25 11:00)
DX: S72.492A Other fracture of lower end of left femur, initial encounter for closed fracture (principal); M97.02XA Periprosthetic fracture around internal prosthetic left hip joint, initial encounter; S51.812A Laceration without foreign body of left forearm, initial encounter; W18.39XA Other fall on same level, initial encounter; Y93.89 Activity, other specified; Y92.017 Garden or yard in single-family (private) house as the place of occurrence of the external cause; Y99.9 Unspecified external cause status; E78.5 Hyperlipidemia, unspecified; I10 Essential (primary) hypertension; E03.9 Hypothyroidism, unspecified; K21.9 Gastro-esophageal reflux disease without esophagitis; M19.90 Unspecified osteoarthritis, unspecified site; Z79.82 Long term (current) use of aspirin; Z79.899 Other long term (current) drug therapy; Z96.653 Presence of artificial knee joint, bilateral
CPT/HCPCS: 01360; 36415; 71010; 80048; 80053; 85025; 85610; 85730; 93005; 93010; 96374; 96375; 99285; C1713; C1898; J0690; J1650; J1741; J2250; J2270; J2405; J2704; J2765; J3010; J3490; J7030; J7120

== ENCOUNTER → 2017-09-22 | Outpatient (CLI) | payer MEDICARE, OTHER ==
--- NOTE | 2017-09-22 10:54 | WOMENS IMAGING REPORT ---
EXAM DESCRIPTION: BILAT SCREENING MAMMO W/CAD COMPLETED DATE/TIME: 09/22/2017 10:33 am REASON FOR STUDY: ROUTINE SCREENING;Z12.31 Z12.31 ENCNTR SCREEN MAMMOGRAM FOR MALIGNANT NEOPLASM OF KAREEM COMPARISON: 09/19/2016 and 08/30/2015 TECHNIQUE: Standard craniocaudal and mediolateral oblique views of each breast recorded using digita l acquisition. LIMITATIONS: None. FINDINGS: Findings present which are benign by mammographic criteria. No suspicious masses, calcifi cations or architectural distortion. Pertinent benign findings: Stable 1 cm benign-appearing mass on the left at 6 o'clock. Read with the assistance of CAD. .[facility] - R2 Cenova Version 1.3 .[facility] - R2 Cenova Version 1.3 .[facility] - R2 Cenova Version 2.4 .[facility] - R2 Cenova Version 2.4 .[facility] - R2 Cement Despatch Operator Version 9.2 Benign mammographic findings may include one or more of the following: Smooth masses, popcorn/rim/co arse calcifications, asymmetries, post-procedure changes, and lesions with long-standing stability. IMPRESSION: BENIGN MAMMOGRAPHIC FINDINGS. BIRADS 2 BREAST DENSITY: a. The breasts are almost entirely fatty. BIRAD: 2 BENIGN FINDING(S) RECOMMENDATION: ROUTINE SCREENING COMMENT: The patient has been notified of the results by letter per SA requirements. Additional no tification policies are in place for contacting patient with suspicious or incomplete findings. Quality ID #225: The [employer] [place] [employer] recommends an annual screening mammogram for women aged 40 years or over. This facility utilizes a reminder system to ensure that all patients receive reminder letters, and/or direct phone calls for appointments. This includes reminders for routine scr eening mammograms, diagnostic mammograms, or other Breast Imaging Interventions when appropriate. Th is patient will be placed in the appropriate reminder system. The [employer] [place] [employer] (ACR) has developed recommendations for screening MRI of the breast s in certain patient populations, to be used in conjunction with mammography. Breast MRI surveillanc e may be appropriate for women with more than 20% lifetime risk of developing breast cancer as deter mined by genetic testing, significant family history of the disease, or history of mantle radiation f or Hodgkins Disease. ACR Practice Guidelines 2008. TECHNICAL DOCUMENTATION: FINDING NUMBER: (1) ASSESSMENT: (1) JOB ID: [id number] [employer]- All Rights Reserved Reading location - IP/workstation name: [email or web address]
== END ==
LOC: WI 10:17
PROVIDERS: ATTEND Internal Medicine
DX: Z12.31 Encounter for screening mammogram for malignant neoplasm of breast (principal)
CPT/HCPCS: 77067

== ENCOUNTER → 2018-02-26 | Outpatient (CLI) | payer MEDICARE, OTHER ==
--- NOTE | 2018-02-26 11:30 | WOMENS IMAGING REPORT ---
EXAM DESCRIPTION: BONE DENSITY HIP/SPINE COMPLETED DATE/TIME: 02/26/2018 11:11 am REASON FOR STUDY: BONE DENSITY TEST /M81.0 M81.0 AGE-RELATED OSTEOPOROSIS W/O CURRENT PATHOLOGICAL FRAC COMPARISON: 09/17/2004. TECHNIQUE: Dual-Energy X-ray Absorptiometry (DEXA) of the AP Spine and Hip. LIMITATIONS: None. FINDINGS: LUMBAR SPINE: The bone mineral density (BMD) measured from L1-L4 in the AP projection correlates with a T-score of 2.1, which is normal as defined by the World Health Organization. HIP: The bone mineral density (BMD) measured in the left hip correlates with a T-score of -0.6, which is n ormal as defined by the World Health Organization. IMPRESSION: 1. LUMBAR SPINE: NORMAL. 2. HIP: NORMAL. COMMENT: The World Health Organization defines low BMD as follows: T-score: Normal: Greater than -1.0 Osteopenia: Between -1.0 and -2.5 Osteoporosis: Less than -2.5 without fractures Established osteoporosis: Less than -2.5 with fractures In general, you may wish to consider: Diagnosis Treatment Follow-up DEXA Normal BMD Prevention 2-3 years Osteopenia Prevention/Therapy 1-2 years Osteoporosis Therapy Yearly TECHNICAL DOCUMENTATION: JOB ID: [id number] [employer]- All Rights Reserved Reading location - IP/workstation name: [facility]-[email or web address]
== END ==
LOC: WI 10:27
PROVIDERS: ATTEND Family Medicine
DX: M81.0 Age-related osteoporosis without current pathological fracture (principal)
CPT/HCPCS: 77080

== ENCOUNTER 2018-08-28 07:37 | Day surgery (SDC) | payer MEDICARE, OTHER ==
[2018-08-28] MEDS ORDERED: PROPOFOL INJ 200 MG/20 ML VIAL IV ONE (08:01)
[2018-08-28 09:45] VITALS: BP 145/66
--- NOTE | 2018-08-28 14:30 | Operative Report ---
Operative Report DATE OF SURGERY: 08/28/18 Operative Report: The risks, benefits and alternatives of the procedure including the risk of bleeding, perforation requiring surgery have been explained to the patient in detail and informed consent has been obtained. Patient is placed in the left, lateral decubital position. Timeout was called. Propofol medication is administered. Rectal examination is done which did not reveal any masses, tears or fissures. An Olympus videoscope was introduced into the patient's rectum. The scope was then carefully advanced all the way to the cecum. The cecum was identified by the usual anatomical landmarks including the ileocecal valve as well as the appendiceal office. Photodocumentation is obtained. The scope was then sequentially pulled back via the various segments of the colon including the ascending colon, hepatic flexure, transverse colon, splenic flexure, desce nding colon and finally into the rectosigmoid portions of the colon. Retroflexion maneuvers performed. PREOPERATIVE DIAGNOSIS: Positive abnormal Cologuard testing POSTOPERATIVE DIAGNOSIS: Colon polyp removed via snare polypectomy and retrieved. Right colon inflammation status post biopsy. Internal hemorrhoids OPERATION: Colonoscopy with snare polypectomy in addition to biopsy SURGEON: PEPE [place] ANESTHESIA: LMAC TISSUE REMOVED OR ALTERED: As noted above. COMPLICATIONS: None. ESTIMATED BLOOD LOSS: None. INTRAOPERATIVE FINDINGS: As noted above. PROCEDURE: Patient tolerated the procedure well. No immediate postprocedure complications are noted. Patient is discharged in good condition. Discharge date 08/28/2018. Discharge diet: Regular. Discharge activity: Regular. 2 to 3-week follow-up to discuss findings. Patient is instructed to call the office or proceed to the emergency room should there be any further questions. 5-year surveillance colonoscopy.
== END 2018-08-28 09:52 | disposition hospice, home (50) ==
LOC: END 07:37
PROVIDERS: ATTEND Internal Medicine Gastroenterology
DX: Z12.11 Encounter for screening for malignant neoplasm of colon (principal); K52.9 Noninfective gastroenteritis and colitis, unspecified; K64.8 Other hemorrhoids; D12.5 Benign neoplasm of sigmoid colon; K63.5 Polyp of colon; I10 Essential (primary) hypertension; E03.9 Hypothyroidism, unspecified; E78.2 Mixed hyperlipidemia; K21.9 Gastro-esophageal reflux disease without esophagitis; F17.210 Nicotine dependence, cigarettes, uncomplicated; Z79.899 Other long term (current) drug therapy; Z79.82 Long term (current) use of aspirin
CPT/HCPCS: 45380; 45385; 88305 ×2; J2704; 811

== ENCOUNTER → 2018-10-08 | Outpatient (CLI) | payer MEDICARE, OTHER ==
--- NOTE | 2018-10-08 10:18 | WOMENS IMAGING REPORT ---
EXAM DESCRIPTION: BILAT SCREENING MAMMO W/CAD COMPLETED DATE/TIME: 10/08/2018 9:17 am REASON FOR STUDY: Z12.31 ENCOUNTER FOR SCREENING MAMMOGRAM FOR MALIGNANT NEOPLASM OF BREAST Z12.31 ENCNTR SCREEN MAMMOGRAM FOR MALIGNANT NEOPLASM OF KAREEM COMPARISON: [id number] EXAM PARAMETERS: Standard craniocaudal and mediolateral oblique views of each breast recorded using digital acquisition. Read with the assistance of CAD. .[facility] - [employer] Pump Station Operator Version 9.2 LIMITATIONS: None. FINDINGS: No suspicious masses, suspicious calcifications or architectural distortion. No areas of c oncern. IMPRESSION: Negative MAMMOGRAM. BIRADS 1 BREAST DENSITY: a. The breasts are almost entirely fatty. BIRAD: ASSESSMENT: 1 NEGATIVE RECOMMENDATION: ROUTINE SCREENING COMMENT: The patient has been notified of the results by letter per MQSA requirements. Additional no tification policies are in place for contacting patient with suspicious or incomplete findings. Quality ID #225: The [employer] [employer] recommends an annual screening mammogram for women aged 40 years or over. This facility utilizes a reminder system to ensure that all patients receive reminder letters, and/or direct phone calls for appointments. This includes reminders for routine scr eening mammograms, diagnostic mammograms, or other Breast Imaging Interventions when appropriate. Th is patient will be placed in the appropriate reminder system. TECHNICAL DOCUMENTATION: FINDING NUMBER: (1) ASSESSMENT: (1) JOB ID: [id number] [employer] [facility] [place]- All Rights Reserved Reading location - IP/workstation name: ANA
== END ==
LOC: WI 08:33
PROVIDERS: ATTEND Family Medicine
DX: Z12.31 Encounter for screening mammogram for malignant neoplasm of breast (principal)
CPT/HCPCS: 77067

== ENCOUNTER → 2019-10-13 | Outpatient (CLI) | payer MEDICARE, OTHER ==
--- NOTE | 2019-10-14 08:26 | WOMENS IMAGING REPORT ---
EXAM DESCRIPTION: 3D SCREENING MAMMO BILAT IMAGES COMPLETED DATE/TIME: 10/13/2019 11:36 am REASON FOR STUDY: Z12.31 ENCNTR SCREEN MAMMOGRAM FOR MALIGNANT NEOPLASM OF BREAST Z12.31 ENCNTR SCR EEN MAMMOGRAM FOR MALIGNANT NEOPLASM OF KAREEM COMPARISON: 10/08/2018 and 09/22/2017. EXAM PARAMETERS: Standard craniocaudal and mediolateral oblique views of each breast recorded using digital acquisition and breast tomosynthesis. Read with the assistance of CAD. .[facility] - Fence Laborer Version 9.2 LIMITATIONS: None. FINDINGS: Findings present which are benign by mammographic criteria. No suspicious masses, calcific ations or architectural distortion. Pertinent benign findings: Stable small masses. Benign mammographic findings may include one or more of the following: Smooth masses, popcorn/rim/coa rse calcifications, asymmetries, post-procedure changes, and lesions with long-standing stability. IMPRESSION: BENIGN MAMMOGRAPHIC FINDINGS. BIRADS 2 BREAST DENSITY: a. The breasts are almost entirely fatty. BIRAD: ASSESSMENT: 2 BENIGN FINDING(S) RECOMMENDATION: ROUTINE SCREENING COMMENT: The patient has been notified of the results by letter per SA requirements. Additional no tification policies are in place for contacting patient with suspicious or incomplete findings. Quality ID #225: The [employer] [employer] recommends an annual screening mammogram for women aged 40 years or over. This facility utilizes a reminder system to ensure that all patients receive reminder letters, and/or direct phone calls for appointments. This includes reminders for routine scr eening mammograms, diagnostic mammograms, or other Breast Imaging Interventions when appropriate. Th is patient will be placed in the appropriate reminder system. TECHNICAL DOCUMENTATION: FINDING NUMBER: (1) ASSESSMENT: (1) JOB ID: [id number] [employer]- All Rights Reserved Reading location - IP/workstation name: [facility]-
== END ==
LOC: WI 10:50
PROVIDERS: ATTEND Family Medicine
DX: Z12.31 Encounter for screening mammogram for malignant neoplasm of breast (principal)
CPT/HCPCS: 77063; 77067